=== PATIENT | female | born 1985 | race Caucasian/White ===

== ENCOUNTER 2016-03-19 19:46 | Emergency (ER) | payer OTHER ==
[~2016-03-19] VITALS: Ht 162.6 cm; Wt 66.5 kg
[2016-03-19 20:14] LABS: ADD MIUA? NO; BILIRUBIN NEGATIVE; BLOOD NEGATIVE; COLOR YELLOW ((YELLOW)); GLUCOSE (STRIP) NEGATIVE; KETONES NEGATIVE; LEUKOCYTES NEGATIVE; NITRITE NEGATIVE; PROTEIN (STRIP) NEGATIVE; SPECIFIC GRAVITY 1.016 (1.000-1.030); UCUL ADDED? NO
[2016-03-19 20:25] LABS: HEMATOCRIT 38.9 % (36.0-46.0); MCH 32.1 PG (29.0-34.0); MCHC 35.2 G/DL (30.0-36.0); MCV 91.1 FL (83-99); MEAN PLAT.VOLUME 10.5 uM^3 (9.5-12.4); PLATELET COUNT 198 K/uL (156-360); RBC DIS.WIDTH-CV 12.3 % (11.8-14.6); RED BLOOD COUNT 4.27 M/uL (3.80-5.20); WHITE BLOOD COUNT 6.7 K/uL (4.1-10.2)
[2016-03-19 20:34] LABS: CHLORIDE 104 mEq/L (99-109); SODIUM 140 mEq/L (136-147)
[2016-03-19 20:37] LABS: GLUCOSE 88 mg/dL (70-99)
[2016-03-19 20:38] LABS: ANION GAP 12 MEQ/L (2-14)
[2016-03-19 20:39] LABS: TOTAL BILIRUBIN 0.6 mg/dL (0.0-1.0)
[2016-03-19 20:40] LABS: ALKALINE PHOSPHATASE 37 IU/L (3-129)
[2016-03-19 20:41] LABS: UREA NITROGEN (BUN) 12 mg/dL (9-23)
[2016-03-19 20:50] LABS: QUANTITATIVE HCG < 4.0 MIU/ML
[2016-03-19 20:51] LABS: GFR ESTIMATE (CALCULATED) > 59 mL/min/
[2016-03-19] MEDS ORDERED: NORG-EE 0.18-01 EACH PO (20:52)
[2016-03-19 22:06] LABS: LIPASE 32 U/L (1.0-51.0)
[2016-03-19] MEDS ORDERED: ZOFRAN ODT4 MG PO (23:49)
[2016-03-19] MEDS ORDERED: PERCOCET 5/31 TABLET PO (23:49)
[2016-03-19 23:56] VITALS: BP 109/70
== END 2016-03-20 00:04 | disposition home or self-care (01) ==
LOC: EME 19:46 → RME 19:46
DX: K80.70 Calculus of gallbladder and bile duct without cholecystitis without obstruction (principal)
CPT/HCPCS: 76705; 80053; 81003; 83690; 84702; 85027; 99281; 99283